=== PATIENT | male | born 1965 | race Caucasian/White ===

== ENCOUNTER 2019-01-29 10:00 | Inpatient (IN) | payer OTHER ==
[~2019-01-29] VITALS: Ht 175.3 cm; Wt 75.7 kg
--- NOTE | ~2019-01-29 | OP ---
[address] [address] OPERATIVE REPORT Name: PAOLA IBARRA Room: [address] IN M.R.#: [id number] Admission: 01/29/19 Attend Phys: Partha Prather DO Discharge: Date of : 69 Report #: [id number] THIS REPORT FOR: //name// CC: Partha Prather [facility] physician/PCP DATE OF SERVICE: 01/29/2019 PREOPERATIVE DIAGNOSIS: Perforated viscus. POSTOPERATIVE DIAGNOSIS: Perforated sigmoid diverticulitis. PROCEDURES: Emergency exploratory laparotomy with sigmoid colon resection, Bj's colostomy, appendectomy and placement of a Prevena wound management system. SURGEON: Partha Prather DO. CUT LACE MACHINE OPERATOR: Kamran Edwards DO. SECOND OPERATING THEATRE TECHNICIAN: Shonda Macario DO. ANESTHESIA: General endotracheal. ESTIMATED BLOOD LOSS: 50 mL. COMPLICATIONS: None. DESCRIPTION OF PROCEDURE: After obtaining proper consents and discussing risks and complications with the patient, he was taken to the operating room, laid in the supine position and administered general endotracheal anesthetic. He was then prepped and draped in the usual sterile fashion. A time-out was performed. We confirmed the appropriate patient and procedure. Preoperative antibiotics had been given. SCDs were in place. We then made a midline incision from just above the umbilicus down to the pubic symphysis. This was carried down through the skin into the subcutaneous tissue using electrocautery for hemostasis. Once the fascia was encountered, it was incised along the midline, grasped and elevated with Christie clamps. The peritoneum was then bluntly opened using a hemostat. There was a jett of air as soon as we entered the abdominal cavity. The peritoneal opening and the fascial opening were then extended for the entire length of the incision. I then explored the abdomen and immediately identified a very inflamed sigmoid colon, with evidence of perforation and there was quite a large hole and quite a large amount of inflammation and this area of the sigmoid was firmly adherent to the bladder and the bladder was quite thickened in this area [place] [address] OPERATIVE REPORT Name: PAOLA IBARRA Room: [address] IN .R.#: [id number] Admission: 01/29/19 Attend Phys: Partha Prather DO Discharge: Date of : 69 Report #: [id number] placed a [place] retractor and then packed the small bowel up into the upper abdomen. I was then easily able to identify the more proximal normal-appearing descending colon; and then we continued dissection, both medial and lateral, down to the distal portion of the sigmoid colon, at the sigmoid-rectal junction. I then opened in an avascular plane in the mesentery and I was able to place a contour stapler distally and divide the sigmoid colon. I then used the LigaSure Impact device to sequentially clamp and divide the mesentery until we were well above and more proximal to the inflamed area, at which point, I fired a VIDAL-80 stapler across the sigmoid colon, descending junction. I then passed off the specimen. We then assured hemostasis within the wound. We copiously irrigated the abdominal cavity at this point and then I placed two 2-0 Prolene sutures on the rectal stump so we could identify it later. I then prepared the descending colon for Jb's colostomy. I did take down the white line of Toldt along the left pericolic gutter to free this area up more and then also took down a portion of the mesentery with no blood vessels affected to assure we had good blood flow to the colostomy. At this point, we chose an area for colostomy, just lateral to the umbilicus in the rectus muscle. A circular incision was made in the skin. This was carried down through the skin and into the subcutaneous tissue all the way down to the fascia using electrocautery. The fascia was opened in a cruciate fashion and the muscle was split and then the peritoneum was sharply opened using electrocautery. We were then able to bring the descending colon up through the hole in the abdominal wall. I then secured the colon to the peritoneum using interrupted 2-0 PDS sutures on a SH needle, going from the serosa and the mesentery to the peritoneum. We then again copiously irrigated the abdominal cavity. We removed all of our sponges. Sponge counts were correct. We did explore the entire abdomen and ran the small bowel, which did appear to be markedly inflamed. The appendix was also moderately inflamed because it was sitting right next to the perforation, so we did elect to remove the appendix. At this point, we opened an avascular window in the mesentery of the appendix and then placed 2-0 silk ties proximally and distally and then divided the appendix. We then used the LigaSure Impact device to take down the mesoappendix. The appendix was passed off as specimen. We then placed 3 stitches in a Lembert fashion of 2-0 Vicryl suture over the appendiceal stump to assure no leak. Following this, we copiously irrigated the abdominal cavity and then closed the peritoneum and fascia together after we had a correct sponge count. This was closed using #1 looped PDS suture. We then closed the subcutaneous tissues using 3-0 Vicryl suture. Skin was closed using matthias. We then placed a Prevena wound management system which covered the entire incision before we opened the colostomy. We then matured the colostomy in a standard fashion, first attaching the serosa to the fascia and then we opened the colostomy by removing the staple line and everted it in the standard fashion using 2-0 and 3-0 Vicryl sutures. The [address] [address] OPERATIVE REPORT Name: PAOLA IBARRA Room: [address] IN [facility].#: [id number] Admission: 01/29/19 Attend Phys: Partha Prather DO Discharge: Date of : 69 Report #: [id number] patient then had an ostomy appliance placed and was awakened in the operating room and transported to the recovery room in stable condition. Sponge, needle and instrument counts were all correct at the end of the procedure. By: 1141 1235Adam Patricia Prather DO /timothy
[~2019-01-29 10:00] MED LIST: ASPIR 8181 M1 PO; COREG6.25 MG PO; IBUPROFEN 400400 M2 PO; LIPITOR 20 MG T20 M1 PO; NITROGLYCERIN0.4 MG SUBLING
[2019-01-29 10:17] VITALS: BP 141/82
[2019-01-29 10:29] LABS: HEMATOCRIT 48.9 % (42.0-52.0); HEMOGLOBIN 16.9 gm/dL (14.0-18.0); MCHC 34.5 g/dL (28.0-37.0); MPV 7.7 fl. (7.2-11.1); NUCLEATED RBCS 0 /100WBC; PLATELET COUNT* 296 thou/uL (150-400); RBC 5.44 mil/uL (4.50-6.00); RDW-CV 13.6 % (10.5-14.5); WBC 26.8 thou/uL (4.0-11.0)
[2019-01-29 10:29] LABS: URINE BLOOD 3+ (Negative); URINE CLARITY CLEAR; URINE COLOR YELLOW; URINE GLUCOSE-RANDOM NEGATIVE (Negative); URINE KETONES 2+ (Negative); URINE LEUKOCYTES-REFLEX NEGATIVE (Negative); URINE NITRITE-REFLEX NEGATIVE (Negative); URINE PROTEIN 2+ (Negative); URINE SPECIFIC GRAVITY >= 1.030 (1.005-1.030); URINE UROBILINOGEN 0.2 E.U./dl (0.2-1.0)
[2019-01-29 10:30] LABS: ICTOTEST (BILI CONFIRMATORY) Negative (Negative); URINE BILIRUBIN 1+ (Negative)
[2019-01-29 10:41] LABS: SQUAMOUS 0-3 Few /LPF (0-3)
[2019-01-29 10:42] LABS: BACTERIA-REFLEX 1-9 Few /HPF (None Seen); CRYSTALS None Seen /LPF (None Seen); HYALINE CASTS 0-3 Few /LPF (None Seen); MUCUS >6 Heavy strn/LPF (None Seen); URINE RBC 3-10 Few /HPF (0-2); URINE WBC-REFLEX 0-5 Rare /HPF (0-5)
[2019-01-29 10:47] LABS: ALBUMIN 3.7 g/dL (3.4-5.0); CREATININE 1.2 mg/dL (0.6-1.3); POTASSIUM 4.2 mmol/L (3.5-5.1); TOTAL BILIRUBIN 1.3 mg/dL (<0.1-1.0); TOTAL PROTEIN 8.5 g/dL (6.4-8.2)
[2019-01-29 10:51] LABS: ABSOLUTE LYMPHOCYTES 1.6 thou/uL (0.8-5.3); ABSOLUTE MONOCYTES 3.2 thou/uL (0.0-1.2); PLATELET ESTIMATE ADEQUATE
[2019-01-29 10:52] LABS: ANISOCYTOSIS 1+; POIKILOCYTOSIS 1+
[2019-01-29 12:37] LABS: APTT 37.3 Seconds (25.0-31.3); INR 1.1; PROTIME 11.5 Seconds (9.20-11.50)
[2019-01-29 14:03] VITALS: BP 137/70
[2019-01-29] MEDS ORDERED: VITAMIN D2000 UNIT PO (14:56)
--- NOTE | 2019-01-29 16:37 | EKG ---
[place] [address] ELECTROCARDIOGRAM REPORT Name: PAOLA IBARRA Room: [place] [address] ADM IN [facility].#: [id number] Admission: 01/29/19 Attend Phys: Partha Prather DO Discharge: Date of : 69 Report #: [id number] THIS REPORT FOR: //name// [facility] ED Test Date: 2019-01-29 Test Time: 12:58:24 Pat Name: PAOLA IBARRA Department: Room: [facility] Gender: M Geometry Professor: Misa ADAMS : 1965 Requested By: Aydin Hurtado Order Number: [id number] MD: Presley King Measurements Intervals [place] Rate: 98 P: 69 MA: 134 QRS: 40 QRSD: 87 T: 45 QT: 340 QTc: 435 Interpretive Statements Sinus rhythm Baseline wander in lead(s) V1,V2 Compared to ECG 01/08/2017 06:41:08 ST (T wave) deviation no longer present Electronically Signed On 01-29-2019 16:37:39 CDT by Presley King [email or web address] <ELECTRONICALLY SIGNED> By: Presley King MD, FACC 01/29/19 1637 1258 [id number] Presley King MD, FAC /EPI
[2019-01-29 19:10] VITALS: BP 110/66
[2019-01-29 23:00] VITALS: BP 102/64
[2019-01-30 04:00] VITALS: BP 91/50
[2019-01-30 05:09] LABS: ABSOLUTE LYMPHOCYTES 0.6 thou/uL (0.8-5.3); ABSOLUTE MONOCYTES 1.6 thou/uL (0.0-1.2); ABSOLUTE NEUTROPHILS 18.6 thou/uL (1.6-8.1); BASOPHILS 0.2 %; HEMATOCRIT 39.6 % (42.0-52.0); LYMPHOCYTES 2.8 %; MCH 30.6 pg (26.0-34.0); MCHC 33.6 g/dL (28.0-37.0); MCV 90.9 fL (80.0-100.0); MONOCYTES 7.7 %; MPV 8.1 fl. (7.2-11.1); NUCLEATED RBCS 0 /100WBC; PLATELET COUNT* 244 thou/uL (150-400); POLYS 89.3 %; RBC 4.35 mil/uL (4.50-6.00); RDW-CV 13.3 % (10.5-14.5); WBC 20.9 thou/uL (4.0-11.0)
[2019-01-30 05:19] LABS: HEMOGLOBIN 13.3 gm/dL (14.0-18.0)
[2019-01-30 05:44] LABS: ALBUMIN 2.3 g/dL (3.4-5.0); CALCIUM 8.6 mg/dL (8.5-10.1); POTASSIUM 4.1 mmol/L (3.5-5.1); TOTAL BILIRUBIN 2.3 mg/dL (<0.1-1.0); TOTAL PROTEIN 6.3 g/dL (6.4-8.2)
[2019-01-30 08:08] VITALS: BP 96/51
[2019-01-30 12:00] VITALS: BP 92/53
[2019-01-30 16:00] VITALS: BP 94/57
[2019-01-30 21:10] VITALS: BP 108/69
[2019-01-31 00:51] VITALS: BP 116/64
[2019-01-31 04:00] VITALS: BP 116/66
[2019-01-31 04:56] LABS: ABSOLUTE LYMPHOCYTES 1.4 thou/uL (0.8-5.3); ABSOLUTE MONOCYTES 1.3 thou/uL (0.0-1.2); ABSOLUTE NEUTROPHILS 10.7 thou/uL (1.6-8.1); BASOPHILS 0.3 %; EOSINOPHILS 0.2 %; HEMATOCRIT 37.6 % (42.0-52.0); HEMOGLOBIN 12.6 gm/dL (14.0-18.0); LYMPHOCYTES 10.1 %; MCH 30.7 pg (26.0-34.0); MCHC 33.5 g/dL (28.0-37.0); MCV 91.7 fL (80.0-100.0); MPV 7.9 fl. (7.2-11.1); NUCLEATED RBCS 0 /100WBC; PLATELET COUNT* 256 thou/uL (150-400); POLYS 79.4 %; RDW-CV 13.4 % (10.5-14.5); WBC 13.5 thou/uL (4.0-11.0)
[2019-01-31 05:22] LABS: CALCIUM 8.6 mg/dL (8.5-10.1); MAGNESIUM 1.9 mg/dL (1.8-2.4); POTASSIUM 3.6 mmol/L (3.5-5.1)
[2019-01-31 08:27] VITALS: BP 116/68
[2019-01-31 12:12] VITALS: BP 108/64
[2019-01-31 16:19] VITALS: BP 111/62
[2019-01-31 19:40] VITALS: BP 132/77
[2019-02-01] VITALS: BP 132/76
[2019-02-01 04:00] VITALS: BP 128/77
[2019-02-01 08:00] VITALS: BP 137/90
[2019-02-01 09:10] LABS: ABSOLUTE EOSINOPHILS 0.1 thou/uL (0.0-0.7); ABSOLUTE MONOCYTES 1.2 thou/uL (0.0-1.2); ABSOLUTE NEUTROPHILS 7.7 thou/uL (1.6-8.1); BASOPHILS 0.3 %; EOSINOPHILS 0.7 %; HEMATOCRIT 38.2 % (42.0-52.0); LYMPHOCYTES 9.9 %; MCH 30.5 pg (26.0-34.0); MCHC 33.9 g/dL (28.0-37.0); MCV 89.9 fL (80.0-100.0); MONOCYTES 12.4 %; MPV 6.9 fl. (7.2-11.1); NUCLEATED RBCS 0 /100WBC; PLATELET COUNT* 293 thou/uL (150-400); POLYS 76.7 %; RBC 4.25 mil/uL (4.50-6.00); RDW-CV 13.4 % (10.5-14.5)
[2019-02-01 09:17] LABS: CALCIUM 8.4 mg/dL (8.5-10.1); CREATININE 0.8 mg/dL (0.6-1.3); POTASSIUM 3.7 mmol/L (3.5-5.1)
[2019-02-01 12:02] VITALS: BP 132/67
[2019-02-01 15:48] VITALS: BP 140/76
[2019-02-01 19:40] VITALS: BP 134/75
[2019-02-02] VITALS: BP 139/79
[2019-02-02 04:00] VITALS: BP 139/78
[2019-02-02 08:00] VITALS: BP 120/69
[2019-02-02 14:34] VITALS: BP 133/71
[2019-02-02 15:47] VITALS: BP 125/72
[2019-02-02 19:45] VITALS: BP 127/74
[2019-02-03] VITALS: BP 136/53
[2019-02-03 04:00] VITALS: BP 120/74
[2019-02-03 05:16] LABS: ABSOLUTE BASOPHILS 0.1 thou/uL (0.0-0.2); ABSOLUTE EOSINOPHILS 0.1 thou/uL (0.0-0.7); ABSOLUTE LYMPHOCYTES 1.4 thou/uL (0.8-5.3); ABSOLUTE MONOCYTES 1.7 thou/uL (0.0-1.2); BASOPHILS 0.5 %; EOSINOPHILS 0.7 %; HEMATOCRIT 40.3 % (42.0-52.0); HEMOGLOBIN 13.5 gm/dL (14.0-18.0); LYMPHOCYTES 10.6 %; MCH 30.1 pg (26.0-34.0); MCHC 33.5 g/dL (28.0-37.0); MCV 89.9 fL (80.0-100.0); MONOCYTES 13.2 %; MPV 7.3 fl. (7.2-11.1); NUCLEATED RBCS 0 /100WBC; RBC 4.49 mil/uL (4.50-6.00); RDW-CV 13.4 % (10.5-14.5); WBC 13.3 thou/uL (4.0-11.0)
[2019-02-03 05:31] LABS: PLATELET COUNT* 409 thou/uL (150-400)
[2019-02-03 05:33] LABS: CALCIUM 8.9 mg/dL (8.5-10.1); CREATININE 0.9 mg/dL (0.6-1.3); POTASSIUM 4.1 mmol/L (3.5-5.1)
[2019-02-03 08:15] VITALS: BP 107/75
[2019-02-03 14:45] VITALS: BP 121/62
[2019-02-03 15:50] VITALS: BP 98/69
[2019-02-03 19:30] VITALS: BP 106/60
--- NOTE | 2019-02-03 21:05 | PATH ---
[address] [address] PATHOLOGY RPT PROCEDURE Name: PAOLA BOLDEN Room: [address] IN M.R.#: [id number] Admission: 01/29/19 Date of : 69 Discharge: Report #: [id number] Path Case #: [id number] [facility] Accession Number: [id number] . 01 Material submitted: . PART A: colon - SIGMOID COLON. Modifiers: sigmoid PART B: appendix - APPENDIX . 01 Clinical history: . Perforated diverticulitis . 02 Diagnosis: A. Colon, sigmoid, segmental resection: - Diverticula with focal rupture and associated acute and chronic serositis. - Viable mucosa present at margins of excision without evidence of significant inflammation. . B. Appendix, appendectomy: - Appendix with fibrous obliteration of the lumen and focal acute serositis. . (DMITRY:pato; 02/03/2019) MBJose D/02/03/2019 . 02 Electronically signed: . Raj Le MD, Pathologist NPI- [id number] . 01 Gross description: . A. The specimen is received in formalin, labeled "Paola Bolden, sigmoid colon in formalin" and consists of an unoriented segment of colon measuring 16.0 cm in length and up to 3.0 cm in diameter with pericolic fat measuring up to 7.4 centimeters thick. Both margins are closed with matthias. 3.5 cm from one stapled margin the serosa is green-michelle to brown with exudate/abscess formation. Opening reveals a lumen partially filled with soft green-brown fecal material. The mucosa is pink-michelle with no masses. The wall is thickened/fibrous. Sectioning reveals a perforated diverticulum which extends into the pericolic tissue to a maximum depth of 1.6 cm and contains brown-green fecal material. A few additional diverticula are present measuring up to 1.0 cm. Office Machine Mechanic sections are submitted as follows: . A1: Margin nearest abscess A2: Opposite margin A3-A4: Perforated diverticulum A5: Additional diverticulum A6: [place] [address] PATHOLOGY RPT PROCEDURE Name: PAOLA BOLDEN Room: [address] IN [facility]#: [id number] Admission: 01/29/19 Date of : 69 Discharge: Report #: [id number] Path Case #: [id number] . B. The specimen is received in formalin, labeled "Paola Bolden, appendix" and consists of a curved appendix measuring 5.1 cm in length and between 0.4 and 0.7 cm in diameter with mesoappendix measuring up to 3.0 cm thick. The proximal margin has black sutures and is inked black. The serosa is focally hemorrhagic at the proximal margin. Sectioning reveals a pinpoint lumen with no gross lesions. Office Machine Mechanic sections are submitted in B1. (SDY; 02/02/2019) SYU/SYU . 02 Pathologist provided ICD-10: K65.8 . 02 CPT . 868329, 048160 Specimen Comment: A courtesy copy of this report has been sent to Specimen Comment: [phone]. Specimen Comment: Report sent to Performed at: [address], [place] [address] MD Coy Hernandez MD Phone: [phone] Performed at: 02 [facility] [address], [place], [place] [id number] MD Vitor Roberts MD Phone: [phone]
[2019-02-04 00:13] VITALS: BP 148/85
[2019-02-04 04:00] VITALS: BP 139/84
[2019-02-04 05:02] LABS: HEMATOCRIT 40.7 % (42.0-52.0); HEMOGLOBIN 13.7 gm/dL (14.0-18.0); MCH 30.4 pg (26.0-34.0); MCHC 33.5 g/dL (28.0-37.0); MCV 90.8 fL (80.0-100.0); MPV 6.9 fl. (7.2-11.1); RBC 4.48 mil/uL (4.50-6.00); RDW-CV 13.6 % (10.5-14.5); WBC 11.3 thou/uL (4.0-11.0)
[2019-02-04 05:14] LABS: CALCIUM 9.1 mg/dL (8.5-10.1); CREATININE 0.9 mg/dL (0.6-1.3); MAGNESIUM 1.8 mg/dL (1.8-2.4); PHOSPHORUS* 3.2 mg/dL (2.5-4.9)
[2019-02-04 08:00] VITALS: BP 112/79
[2019-02-04 11:59] VITALS: BP 121/72
[2019-02-04 13:11] VITALS: BP 121/72
[2019-02-04] MEDS ORDERED: AUGMENTIN 875-1 EACH PO (13:20)
[2019-02-04] MEDS ORDERED: FLAGYL500 M1 PO (13:23)
[2019-02-04] MEDS ORDERED: NORCO 5-325 TA1 EACH PO (13:24)
== END 2019-02-04 16:35 | disposition home health service (06) | DRG 854 ==
LOC: M.ERS 10:00 → M.2W 13:38 → M.TBA-ER 13:38 → M.2W 19:15
PROVIDERS: Physician Assistant; ADMIT Surgery
DX: A41.9 Sepsis, unspecified organism (principal); K57.20 Diverticulitis of large intestine with perforation and abscess without bleeding; E87.1 Hypo-osmolality and hyponatremia; F17.210 Nicotine dependence, cigarettes, uncomplicated; F12.90 Cannabis use, unspecified, uncomplicated; E80.6 Other disorders of bilirubin metabolism; Z79.899 Other long term (current) drug therapy

== ENCOUNTER 2019-04-05 14:03 | Inpatient (IN) | payer OTHER ==
[~2019-04-05] VITALS: Ht 172.7 cm; Wt 73.0 kg
--- NOTE | ~2019-04-05 | OP ---
[address] [address] OPERATIVE REPORT Name: PAOLA IBARRA Room: [address] IN M.R.#: [id number] Admission: 04/20/19 Attend Phys: Partha Prather DO Discharge: Date of : 69 Report #: [id number] THIS REPORT FOR: //name// CC: Partha Prather [facility] physician/PCP DATE OF SERVICE: 04/20/2019 PREOPERATIVE DIAGNOSIS: Perforated sigmoid diverticulitis, status post Jb's colostomy. POSTOPERATIVE DIAGNOSIS: Perforated sigmoid diverticulitis, status post Jb's colostomy. PROCEDURES: Laparoscopic takedown of colostomy with reanastomosis using immunofluorescence imaging and also rigid sigmoidoscopy and lysis of adhesions lasting 30 minutes. SURGEON: Partha Prather DO FIREWALL ENGINEER: Matteo Gomez DO, PGY3, resident. SECOND AD OPERATIONS COORDINATOR: STEPHY Morales student. ANESTHESIA: General endotracheal. ESTIMATED BLOOD LOSS: 30 mL. COMPLICATIONS: None. DESCRIPTION OF PROCEDURE: After obtaining proper consents and discussing risks and complications with the patient, he was taken to the operating room, laid in the supine position, administered general endotracheal anesthetic. He was then prepped and draped in the usual sterile fashion. A timeout was performed. We confirmed the appropriate patient and procedure. He was also placed in lithotomy position. Valdez catheter had been inserted and we also pursestring sutured his colostomy closed. Once this was all done, we then made a supraumbilical skin incision with a #11 scalpel blade. This was carried down through the skin into the subcutaneous tissue using electrocautery for hemostasis. Once the fascia was encountered, it was incised along the midline, grasped and elevated with Christie clamps and divided further. The peritoneum was then bluntly opened using a hemostat. The finger was placed inside the peritoneal cavity to assure that there were no marianne-incisional adhesions. There were none noted. We then placed 2-0 Vicryl sutures in a [id number] fashion to secure the 5-mm Pamela trocar, which was then inserted and insufflation was begun. Once insufflation was complete, [place] [address] OPERATIVE REPORT Name: PAOLA IBARRA Room: [address] IN [facility]#: [id number] Admission: 04/20/19 Attend Phys: Partha Prather DO Discharge: Date of : 69 Report #: [id number] abdominal organs was performed. This revealed some adhesions along the midline. We were able to easily visualize the descending colon going up into the colostomy. The adhesions were mostly along the midline where the patient's midline incision had been. We then placed two more 5 mm trocars in the right abdomen and one in the right upper quadrant, one in the right lower quadrant. I was then able to takedown the adhesions along the midline using blunt dissection as well as electrocautery. Once all the adhesions were taken down, we were able to identify the colostomy. I freed the area around the colostomy completely using electrocautery as well as blunt dissection. We then placed the patient in steep Trendelenburg and I was able to identify the rectal stump after pushing the small bowel up out of the pelvis. There were some adhesions to the small bowel and right colon down in the pelvis, which were freed, so that it would go up out of the pelvis so we could better visualize the rectal stump. I then dissected the rectal stump free until we were able to elevate it. Next, attention was turned towards taking down the colostomy. We did this by making an elliptical incision around the colostomy on the outside using a #15 scalpel blade. This was carried down through the skin into the subcutaneous tissue using electrocautery for hemostasis. We then dissected down to the fascia, at which point, the colostomy was freed from the fascia and peritoneum. We were then able to elevate the entire descending colon up out of that small incision and we used a TA 60 stapling device to go across the colon. At which time, we grasped and elevated the mucosa and serosa using Allis clamps. There was a blood vessel in the mesentery that bled slightly. I used a 2-0 Vicryl suture to suture ligate this. We then used EEA sizers to determine the size of the stapling device we would use. We elected to proceed with a 28 mm EEA. The anvil of the 28 mm EEA was inserted after a pursestring suture was placed. We then dropped this back into the peritoneal cavity. I then closed the fascia of the colostomy site using interrupted 0 PDS sutures in a juyeey-aj-fjkwu fashion. We then reinsufflated the abdomen. I did have to free up the descending colon a little bit in order to bring the anvil down without any tension. We freed up the white line of Toldt along the left pericolic gutter all the way up to and around the splenic flexure in order to bring this down, assuring that we stayed well away from the bowel and just freed the mesentery. I was then easily able to bring the anvil down to the rectal stump. Once this was done, my obstetric assistant went below and used a rigid sigmoidoscope to insufflate some air into the rectal stump to assure there was no leak. There was none noted. We then placed a 28 mm EEA up through the anus. The spike was opened anterior to the previously made staple line. We then attached the anvil to the spike and the anastomosis was performed. Once this was done, I then used immunofluorescence imaging to assure there was good blood flow to both the distal descending colon and the rectal stump, which there was excellent blood flow visualized using immunofluorescence imaging. Following this, I placed a bowel clamp across the descending colon and air was insufflated through the anus. There was a small area that bubbled on the anterior staple line. I did use an EndoStitch to close this area and then after the EndoStitch was placed, there was no longer any bubbling. I did at this point a break scrub and [place] [address] OPERATIVE REPORT Name: PAOLA IBARRA Room: [address] IN [facility]#: [id number] Admission: 04/20/19 Attend Phys: Partha Prather DO Discharge: Date of : 69 Report #: [id number] myself in order to visualize the anastomosis. The anastomosis appeared to be intact with no evidence of leak or bleeding. I then rescrubbed and went back to the patient's bedside where we placed a 19-Slovenian Byron-Yanez drain, which was placed down next to the anastomosis. We copiously irrigated again to assure there was no leak or bleeding. The drain was sutured in place using 2-0 nylon suture. We then removed the trocars under direct vision. The fascia of the supraumbilical incision was closed using the previously placed 2-0 Vicryl sutures plus 2 additional 2-0 Vicryl sutures. The skin incisions were closed using 4-0 Monocryl subcuticular stitches. In the area of the stoma, we closed the subcutaneous tissues using a 2-0 Vicryl suture and 3-0 Vicryl suture was used to close the skin in a circular fashion, leaving a small opening to allow for drainage. Sterile dressings were then placed. The patient was awakened in the operating room and transported to recovery room in stable condition. Sponge, needle and instrument counts were all correct at the end of the procedure. By: 1105 1135Akenneth Prather DO /timothy
[~2019-04-05 14:03] MED LIST changes: +AUGMENTIN 875-1 EACH PO; +FLAGYL500 M1 PO; +NORCO 5-325 TA1 EACH PO; +VITAMIN D2000 UNIT PO
[2019-04-20 07:06] LABS: HEMATOCRIT 47.9 % (42.0-52.0); HEMOGLOBIN 16.5 gm/dL (14.0-18.0); MCH 30.2 pg (26.0-34.0); MCHC 34.5 g/dL (28.0-37.0); MCV 87.4 fL (80.0-100.0); MPV 6.9 fl. (7.2-11.1); RBC 5.48 mil/uL (4.50-6.00); RDW-CV 12.9 % (10.5-14.5); WBC 11.9 thou/uL (4.0-11.0)
[2019-04-20 07:10] LABS: CALCIUM 9.3 mg/dL (8.5-10.1)
[2019-04-20 07:15] LABS: ALBUMIN 4.4 g/dL (3.4-5.0); TOTAL BILIRUBIN 0.9 mg/dL (<0.1-1.0); TOTAL PROTEIN 8.4 g/dL (6.4-8.2)
[2019-04-20 07:56] VITALS: BP 127/80
[2019-04-20 14:47] VITALS: BP 130/76
[2019-04-20 21:30] VITALS: BP 112/67
[2019-04-21] VITALS: BP 112/64
[2019-04-21 03:20] VITALS: BP 101/55
[2019-04-21 04:17] LABS: HEMATOCRIT 38.3 % (42.0-52.0); MCH 30.2 pg (26.0-34.0); MCV 88.8 fL (80.0-100.0); MPV 7.1 fl. (7.2-11.1); RBC 4.31 mil/uL (4.50-6.00); RDW-CV 12.8 % (10.5-14.5); WBC 14.1 thou/uL (4.0-11.0)
[2019-04-21 04:37] LABS: CALCIUM 8.7 mg/dL (8.5-10.1)
[2019-04-21 10:00] VITALS: BP 113/70
[2019-04-21 16:00] VITALS: BP 119/55
[2019-04-21 20:00] VITALS: BP 134/91
[2019-04-22] VITALS: BP 128/78
[2019-04-22 03:30] VITALS: BP 101/65
[2019-04-22 04:05] LABS: HEMATOCRIT 38.4 % (42.0-52.0); HEMOGLOBIN 13.3 gm/dL (14.0-18.0); MCH 30.6 pg (26.0-34.0); MCHC 34.6 g/dL (28.0-37.0); MCV 88.3 fL (80.0-100.0); MPV 7.2 fl. (7.2-11.1); RBC 4.34 mil/uL (4.50-6.00); RDW-CV 12.6 % (10.5-14.5); WBC 9.2 thou/uL (4.0-11.0)
[2019-04-22 04:10] LABS: CREATININE 0.8 mg/dL (0.6-1.3); POTASSIUM 3.6 mmol/L (3.5-5.1)
[2019-04-22 09:00] VITALS: BP 134/75
--- NOTE | 2019-04-22 14:06 | PATH ---
[address] [address] PATHOLOGY RPT PROCEDURE Name: PAOLA BOLDEN Room: [address] IN M.R.#: [id number] Admission: 04/20/19 Date of : 69 Discharge: Report #: [id number] Path Case #: [id number] [facility] Accession Number: [id number] . 01 Material submitted: . colon - COLOSTOMY AND ANASTOMOTIC RINGS . 01 Clinical history: . Diverticulitis . 02 Diagnosis: "Colostomy and anastomotic rings", removal: - Colostomy take down specimen with focal mild chronic inflammation and focal fat necrosis in adjacent adipose tissue. - Two anastomotic rings of unremarkable colonic mucosa. . (SKM:mmjulieta; 04/22/2019) QLM/04/22/2019 . 02 Electronically signed: . Raj Le MD, Pathologist NPI- [id number] . 01 Gross description: . The specimen is received in formalin, labeled "Paola Bolden, colostomy and anastomotic rings". Received is a segment of fat wrapped: Measuring 4.4 cm in length by 3.5 cm in diameter. One margin is stapled closed. The opposite margin displays a stoma with exposed red-brown mucosa measuring 2.9 x 2.5 cm surrounded by a strip of humphries-michelle skin. Opening the specimen reveals pink-michelle mucosa with normal architectural folds. No distinct nodules or lesions are noted grossly. No distinct nodules or lesions are noted grossly. The specimen is submitted representatively in cassettes A1 and A2. . Also received within the specimen container are two anastomotic rings of light michelle mucosa measuring 2.8 x 1.1 x 0.9 and 2.8 x 1.6 x 1.0 cm in greatest dimensions. Loss Prevention Representative sections from each segment are submitted in cassette A3. (CAA; 04/21/2019) QAC/QAC . 02 Pathologist provided ICD-10: Z43.3, K52.9 . 02 CPT . 591799 Specimen Comment: A courtesy copy of this report has been sent to Specimen Comment: [phone]. [place] [address] PATHOLOGY RPT PROCEDURE Name: PAOLA BOLDEN Room: [address] IN .R.#: [id number] Admission: 04/20/19 Date of : 69 Discharge: Report #: [id number] Path Case #: [id number] Specimen Comment: Report sent to Performed at: [address] [facility] [address], [place], [place] [id number] MD Coy Hernandez MD Phone: [phone] Performed at: 02 [facility] [address], [place], [place] [id number] MD Vitor Roberts MD Phone: [phone]
[2019-04-22 16:40] VITALS: BP 113/66
[2019-04-22 20:30] VITALS: BP 129/78
[2019-04-23 04:00] VITALS: BP 101/60
[2019-04-23 07:45] VITALS: BP 126/74
[2019-04-23] MEDS ORDERED: OXYCODONE HCL 55 MG PO (14:19)
[2019-04-23 14:26] VITALS: BP 126/74
[2019-04-23 14:42] VITALS: BP 126/74
[2019-04-23] MEDS ORDERED: TYLENOL325 MG PO (14:56)
[2019-04-23] MEDS ORDERED: COLACE100 MG PO (14:56)
[2019-04-23 16:05] VITALS: BP 126/74
== END 2019-04-23 16:06 | disposition home or self-care (01) | DRG 346 ==
LOC: M.PRE 14:03 → M.TBA 04-20 06:30 → M.ORTHSURG 04-20 06:30 → M.PRE 04-20 09:32 → M.ORTHSURG 04-20 14:15
PROVIDERS: ADMIT Surgery
PROC: 0DSN4ZZ Reposition Sigmoid Colon, Percutaneous Endoscopic Approach (ICD-10-PCS; principal; 2019-04-20)
DX: K57.32 Diverticulitis of large intestine without perforation or abscess without bleeding (principal); K66.0 Peritoneal adhesions (postprocedural) (postinfection); Z79.899 Other long term (current) drug therapy